=== PATIENT | female | born 2000 | race Caucasian/White ===

== ENCOUNTER 2023-03-04 10:05 | Outpatient (CLI) | payer SELFPAY | END 2023-03-04 10:06 | disposition home or self-care (01) | PROVIDERS: Visit Provider Obstetrics & Gynecology | DX: Z34.93 Encounter for supervision of normal pregnancy, unspecified, third trimester (principal); Z3A.35 35 weeks gestation of pregnancy | CPT/HCPCS: 87081; 87491; 87529; 87591; 87653 ==

== ENCOUNTER 2023-03-12 09:02 | Inpatient (IN) | payer SELFPAY ==
[2023-03-12] VITALS (32 sets, daily range): BP systolic 94–121; BP diastolic 51–77; PULSE 65–146; RESP 16–18; TEMP 36.4–37.1; O2SAT 96–100; BMI 23.5
[2023-03-12] MEDS: TERBUTALINE 1 MG/ML INJ 0.25 MG SUBCUT (09:01)
[2023-03-12] MEDS: LACTATED RINGERS 1000 ML 1,000 ML 100 ML IV ×2 (09:02→10:02)
[2023-03-12 09:04] LABS: Basophils Percent Auto 0.1 % (0.0-3.0); Eosinophils Percent Auto 0.3 % (0.0-7.0); Hematocrit 35.8 % (33.0-51.0); Hemoglobin* 12.2 gm/dL (12.0-16.0); Lymphocytes Percent Auto 14.6 % (20-44); Mean Corpuscular HGB Conc 34 gm/dL (32-36); Mean Corpuscular Hemoglobin 32 pg (26-34); Mean Corpuscular Volume 94 fL (80-100); Neutrophils Percent Auto 78.7 % (42.0-72.0); Platelet Count* 268 K/uL (140-440); RDW Coefficient of Variation % 12.8 % (11.5-15.5); Red Blood Count 3.83 m/uL (4.00-5.20); White Blood Count* 10.52 K/uL (4.50-11.00)
[2023-03-12 09:05] LABS: Basophils Absolute Auto 0.01 K/uL (0.00-0.30); Eosinophils Absolute Auto 0.03 K/uL (0.00-0.50); Immature Granulocytes Abs Auto 0.03 K/uL (0.00-0.30); Immature Granulocytes Pct Auto 0.3 %
--- NOTE | 2023-03-12 09:07 | W.ANESCHARGE ---
Anesthesia Charges Start Date/Time Anesthesia Start Date: 03/12/23 Anesthesia Start Time: 09:21 Stop Date/Time Anesthesia Stop Date: 03/12/23 Anesthesia Stop Time: 10:40 Summary Emergency: MDA
[2023-03-12 09:08] LABS: Slide Review Reflex No
--- NOTE | 2023-03-12 09:12 | PM.OBHPCS1 ---
OB - H&P: HPI History of Present Illness Chief complaint: Maternity : 3 Para: 1 Indications for induction: other (BREECH) Narrative: Aziza Damian is a 22 year old female that was being seen for an US today and was noted to be having regular contractions with fetus in breech position. She was transferred to Labor and Delivery for monitoring and found to be 5 cm. Plan to proceed with urgent section. I was asked to come and do an H&P on the patient because the surgeon was completing another procedure. Patient recently transferred to [facility] and [facility] and was seen on 03/04/[address] Bacon for transfer visit. She transferred from [facility] where she received routine care prior to transfer. Please see this for additional information. Specific Issues/Plans , BRITTNEY: 04/03/23 by first trimester US. Transfer of Care at 35 weeks OB Problem List: 1. Bicornuate Uterus, on the left horn -Malpresentation at 35 weeks, transverse head to maternal left side -Has completed growth US at different clinic all normal, pending a new growth US with clinic visit at 36 weeks if transverse will need to schedule delivery. 2. History of SAB x1 -For management of first trimester SAB, complicated by retained products, delayed hemorrhage and need for additional intervention, patient states to have been transferred to [facility], describes a hysteroscopy done, diagnosed with bicornuate uterus and received blood transfusion. 3. Transfer of care appointment, vulvar lesion concerning for genital herpes -Pending PCR results -Acyclovir ordered on 03/04/23 Transfer care labs: 1st trimester labs: Blood type O positive, antibody screen negative, hemoglobin 12.4, platelets [id number], rubella immune, RPR nonreactive, hepatitis-B surface antigen nonreactive, HIV negative, gonorrhea chlamydia negative, urine culture negative for infection. Her last Pap smear was performed on 07/10/2020 and this was found negative. Third trimester labs: 01/09/2023: Hemoglobin 11.6, 1 hour GTT: 105, RPR nonreactive. OB ultrasounds: 08/21/2022: BRITTNEY: 04/03/2023, 7 weeks 5 days, heart rate 162 beats per minute. Uterus: Abnormal shape, heart shaped with 2 horns and is Wendy the in the left horn. 11/18/2022: anatomy ultrasound: Posterior placenta, normal amount of amniotic fluid, EFW: 365 g, 47 percentile, normal anatomy. 12/18/2022: Breech presentation, single deepest pocket of amniotic fluid 4.9 cm, EFW: 50 percentile, follow-up of bilateral hands normal. 01/09/2023: Cephalic presentation, posterior placenta, normal amount of amniotic fluid, EFW 47 percentile. 02/07/2023: Transverse, head to the left, posterior placenta, single deepest pocket of amniotic fluid 6.8 cm, EFW: 31 percentile. History of Present care: good care Ultrasounds: normal 1st trimester US and normal mid trimester US Labs Blood type: O (+) positive Review of Systems Status of ROS: Reports: 6 or more systems reviewed and unremarkable except as noted in History and below [facility] Medical History Genital herpes ?A60.00 - Herpesviral infection of urogenital system, unspecified (ICD-10) Surgical History History of hysteroscopy ?Z98.890 - Other specified postprocedural states (ICD-10) H/O dilation and curettage ?Z98.890 - Other specified postprocedural states (ICD-10) Social History Little interest or pleasure in doing things: several days Feeling down, depressed, or hopeless: not at all Meds Home Medications and Allergies Allergies Allergy/AdvReac Type Severity Reaction Status Date / Time No Known Drug Allergies Allergy Verified 03/12/23 09:06 OB - H&P: Exam Physical Exam: Vital signs: Temp Pulse Resp BP Pulse Ox 98.2 F 115 H 16 121/77 98 03/12/23 09:10 03/12/23 09:00 03/12/23 09:10 03/12/23 09:00 03/12/23 08:54 Narrative: Vitals Reviewed Constitutional:? Alert and oriented x3 HEENT:? Normocephalic, atraumatic Neck:? Supple Lungs:? Clear to auscultation bilaterally Heart:? Regular rate and rhythm, no murmur, rub or gallop Abdomen:? Soft, nontender, and gravid. Vertex by Luis's, confirmed with cervical exam. Extremities:? No edema or erythema Cervix: 5 cm/BREECH NST: 145 bpm/moderate variability/15x15 accelerations/no decelerations/regular contractions every 2-4 minutes OB - Results Labs Labs: Short CBC 03/12/23 Range/Units 08:56 WBC 10.52 (4.50-11.00) K/uL Hgb 12.2 (12.0-16.0) gm/dL Hct 35.8 (33.0-51.0) % Plt Count 268 (140-440) K/uL Assessment and Plan Assessment and plan (1) Pain during labor: Status: Acute (2) Bicornuate uterus: Status: Acute (3) Breech presentation: Status: Acute Plan ASSESSMENT:? 22 at 36 6/7 weeks gestation? complicated by:?Bicornate Uterus, Genital Herpes Category 1 FHR pattern.?? Labor complicated by: BREECH presentation? GBS negative? ? PLAN:? 1. Proceed with urgent section. Care assumed by OB.
[2023-03-12] MEDS: CEFAZOLIN 2 GM INJ IVP (09:32)
--- NOTE | 2023-03-12 09:34 | W.PM.NB ---
Nerve Block Nerve Block Time Seen by Provider: 10:32 Date Seen: 03/12/23 Type of block requested by surgeon for post-operative analgesia: TAP Side: bilateral Time out performed: Yes Verification of patient name: Yes Verification of date of : Yes Site marking: site marked Name of person performing procedure: Luke Continuous monitoring Was continuous monitoring of O2 sat, B/P, property assessment monitor, recorded every 15 minutes?: Yes Procedure Checklist: sterile prep, needles and gloves Ultrasound guided. Images saved: Yes Medications given in 5ml increments after negative aspiration: Marcaine %: 0.25 mL: 30 Needle gauge: 20 and Exparel mL: 10 Patient tolerated procedure well: Yes Additional comments: Needle noted adjacent to nerve Block Charges Block Charge (with Pro Fee): TAP Bilateral Use of Ultrasound Machine for Block: Yes- US Guidance/pain block
[2023-03-12] MEDS: AZITHROMYCIN 500 MG in 0.9 % SODIUM CHLORIDE 250 ml 250 ML 255 MG IVPB (09:45)
--- NOTE | 2023-03-12 10:31 | P.OBPRC_ITS ---
Procedure Date of procedure: 03/12/23 Pre-op diagnosis: 1. Labor at 36 6/7 weeks. 2. Breech presentation. 3. Uterine anomaly Post-op diagnosis: other (Arcuate uterus) Procedure Done: Global [facility] bill your pro fee for this procedure?: Yes Blood Loss Measurement Type: QBL (378) Bakri Used: No IV fluids (mL): 1,500 Urine Output (mL): 100 Surgeon: Melissa Yates MD Associate Professor Computer Science: Leticia Gaming MD Anesthesia type: Spinal Findings: 1. Female , breech presentation, sacrum to maternal left. 7 and 9, weight 6 lb, 13 oz. 2. Uterus with slight indentation on the external fundus, and palpable muscular septum in the internal midline fundus, approximately 2.5 cm in length. Infant was to the left of this indentation. Otherwise, normal appearance to tubes and ovaries bilaterally. Procedure Description: PROCEDURE IN DETAIL: Patient was taken to the operating room with IV running. She received cefazolin and azithromycin in preoperative prophylaxis. Spinal anesthesia was administered. Rincon catheter was inserted. She was prepped and draped in the usual sterile fashion. Anesthesia was tested and found to be adequate. A low-transverse skin incision was made with a scalpel and carried through to the underlying layer of fascia with the scalpel. The subcutaneous fat was dissected off the underlying fascia bluntly, and Bovie was used on bleeding vessel along the subcutaneous tissue on the left side. The fascia was nicked in the midline with a scalpel, and this incision was extended laterally with scissors. The rectus muscles were in the midline. Peritoneum was identified and entered bluntly. Bovie was used to widen this opening laterally. Ramirez O retractor was inserted and tightened down, providing excellent visu alization of the lower uterine segment. The bladder reflection was found to be well below the planned site for hysterotomy. Low-transverse uterine incision was made with a scalpel. Incision was widened bluntly. The infant's legs were grasped through the hysterotomy, followed by the hips. Sterile towel was wrapped around the abdomen. The arms were delivered with the help of rotation of the trunk, sweeping them across the front of the body. Head was then delivered, maintaining it in a neutral position. Infant tone was initially low, and cord was thus immediately clamped cut. Infant was handed off to attending nurses. The placenta was delivered with gentle traction on the cord. The uterus was cleaned of all clots and debris with the dry lap pad. The uterus was exteriori zed and the external and internal surfaces examined as described above. The hysterotomy was reapproximated with 0 Vicryl in a running, locked fashion. Two additional [id number] sutures were required around the hysterotomy to obtain hemostasis. The adnexa were examined and noted to be normal in appearance. The cul-de-sac was cleansed with dampened laparotomy sponge, removing any further clots and debris. The uterus was returned to the abdomen. The Ramirez O retractor was removed. The hysterotomy was reexamined and found to be hemostatic. The peritoneum was reapproximated with 2 0 Vicryl in a running fashion. The rectus muscles were examined and found to be hemostatic. The fascia was reapproximated with 0 Vicryl in a running fashion. Subcutaneous fat was irrigated and Bovie u sed on oozing vessels. The subcutaneous fat was reapproximated with 2 0 plain gut suture in an interrupted fashion. The skin was closed with a subcuticular stitch of 4-0 Monocryl. Surgical glue was applied above this. Patient tolerated procedure well was taken to recovery area in stable condition. Complications: None Condition: stable Disposition: floor
[2023-03-12] MEDS: KETOROLAC 30 MG/ML inj IVP ×3 (10:35→23:20)
--- NOTE | 2023-03-12 10:45 | W.ANESCHARGE ---
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
[2023-03-12] MEDS: LACTATED RINGERS 1000 ML 1,000 ML 125 ML IV (13:28)
[2023-03-12] MEDS: VALACYCLOVIR HCL 500 MG TABLET 1000 MG PO (21:22)
[2023-03-13] VITALS (14 sets, daily range): BP systolic 92–99; BP diastolic 53–63; PULSE 66–105; RESP 16; TEMP 36.4–36.9; O2SAT 96–98
[2023-03-13] MEDS: KETOROLAC 30 MG/ML inj IVP ×3 (05:08→16:28)
[2023-03-13 06:21] LABS: Hemoglobin* 10.6 gm/dL (12.0-16.0)
[2023-03-13] MEDS: ACETAMINOPHEN 500 MG TABLET 1000 MG PO ×3 (07:46→20:12)
[2023-03-13] MEDS: DOCUSATE SODIUM 100 MG CAPSULE PO (07:47)
--- NOTE | 2023-03-13 07:47 | P.OBPN_ITS ---
Documented by User: Adam Trinidad CNM 03/13/23 07:58 OB - PN:Subj Subjective Date Seen: 03/13/23 Patient comments OB post-: pain well controlled, tolerating diet and flatus present infant status: and doing well feeding status: exclusively OB - PN: Obj Exam Physical Exam: Vital signs: Temp Pulse Resp BP Pulse Ox O2 Del Method 98.1 F 86 16 92/56 L 97 Room Air 03/13/23 04:22 03/13/23 04:22 03/13/23 06:39 03/13/23 04:22 03/13/23 04:22 03/13/23 04:22 Narrative: GENERAL APPEARANCE:? normal affect, alert, no distress MOOD:? appropriate CHEST:? clear to auscultation HEART:? regular rate and rhythm ABDOMEN:? soft, non-tender the uterine fundus is At Umbilicus, Midline and is appropriate for the stage of recovery. EXTREMITIES:? normal and no edema Incision: Healing well, no discharge, dressing intact Urinary Catheter Management: Urethral: Cath placed during this visit: yes Urethral indwelling: No Insertion date: 03/12/23 Insertion time: 09:38 OB - PN: Obj Data Labs Labs: Laboratory Results - last 24 hr 03/12/23 03/13/23 08:56 05:55 WBC 10.52 RBC 3.83 L Hgb 12.2 10.6 L Hct 35.8 MCV 94 MCH 32 MCHC 34 RDW Coeff of Kevin 12.8 Plt Count 268 Neut % (Auto) 78.7 H Lymph % (Auto) 14.6 L [place] % (Auto) 6.0 Eos % (Auto) 0.3 Baso % (Auto) 0.1 Neut # (Auto) 8.30 H Lymph # (Auto) 1.50 [place] # (Auto) 0.60 Eos # (Auto) 0.03 Baso # (Auto) 0.01 Abs Immat Gran (auto) 0.03 Imm/Tot Granulo (auto) 0.3 Blood Type O Positive Antibody Screen NEGATIVE OB - PN: A/P Delivery Assessment and Plan (1) care and examination immediately after delivery: Status: Acute (2) Bicornuate uterus: Status: Acute (3) Breech presentation: Status: Acute (4) Status post delivery: Status: Acute Plan day: 1 Plan: routine care Comments: anitcipate discharge tomorrow Documented by User: Shreya Grady CNM 03/13/23 13:03 OB - PN: Obj Exam Urinary Catheter Management: Urethral: Cath placed during this visit: yes OB - PN: A/P Delivery Assessment and Plan (1) care and examination immediately after delivery: Status: Acute (2) Bicornuate uterus: Status: Acute (3) Breech presentation: Status: Acute (4) Status post delivery: Status: Acute Plan Comments: anticipate discharge tomorrow or the next per pt preference.
[2023-03-13] MEDS: VALACYCLOVIR HCL 500 MG TABLET 1000 MG PO ×2 (08:56→21:12)
[2023-03-13] MEDS: IBUPROFEN 600 MG TABLET PO (22:45)
[2023-03-14] MEDS: ACETAMINOPHEN 500 MG TABLET 1000 MG PO ×2 (03:20→09:23)
[2023-03-14] MEDS: IBUPROFEN 600 MG TABLET PO (05:55)
[2023-03-14 07:30] VITALS: BP 104/65; PULSE 77; RESP 16; TEMP 36.9; O2SAT 97
[2023-03-14] MEDS: OXYCODONE 5 MG TABLET PO (09:22)
[2023-03-14] MEDS: VALACYCLOVIR HCL 500 MG TABLET 1000 MG PO (09:24)
--- NOTE | 2023-03-14 09:41 | PM.OBDSVD1 ---
DS: Providers Provider Date Seen: 03/14/23 Date of admission: 03/12/23 09:02 Primary care physician: Not a Local Provider Admitting Clinician: Melissa Yates MD Attending Physician on discharge: Kaylin Mckeon MD Date of Discharge: 03/14/23 DS: Diagnosis Discharge Diagnosis (1) Status post delivery: Status: Acute (2) Anemia due to blood loss, acute: Status: Acute Exam Const: Vital Signs, click to edit/add: Vital Signs - 24 hr 03/13/23 16:00 03/13/23 22:47 03/14/23 07:30 Temperature 98.3 F 97.6 F 98.5 F Pulse Rate [Pulse Oximeter] 105 H 66 77 Respiratory Rate 16 16 16 Blood Pressure [Le ft Arm] 99/58 L 95/63 104/65 Pulse Oximetry 97 97 97 Oxygen Delivery Me thod Room Air Room Air Room Air Documenting provider has reviewed patient's vital signs: yes Common normals: no apparent distress, oriented x3 and alert General appearance: cooperative and comfortable Resp: Common normals: normal respiratory effort and clear to auscultation bilaterally Auscultation: clear to auscultation bilaterally Cardio: Common normals: regular rate and regular rhythm Rate: regular rate Rhythm: regular rhythm GI: Common normals: soft to palpation and non-tender Inspection: incision (Clean, dry, intact) Inspection of incision: healing well Palpation: soft : Uterus: U/2 and firm Lochia: small Uterus palpation: uterus nontender Extremity: Common normals: normal to inspection, no calf tenderness and no pedal edema Neuro: Common normals: oriented x3 Sensorium/orientation: alert OB - DS: Summary Hospital Course Hospital Course: The patient is a 22 year old G3 now P2012 at 36 6/7 weeks gestation that was admitted to the Center on 03/12/23 in labor. Fetus was in a breech presentation. She had an uncomplicated primary low transverse delivery. Her uterus was found to be bicornuate at the time of delivery. She delivered a viable female . She is bottle feeding. the patient has done well. Peripartum Data delivery method: Primary C/S; Labored Procedures: Procedures Operation Date: 03/12/23 09:15 Actual Procedure Side Surgeon p Section Melissa Yates MD complications: none [place] Infant Gender: Female Infant Discharge Plan: Home Status at Discharge Functional status at discharge: independent ambulation Time Spent with Patient Time attestation: Total time spent providing and/or coordinating discharge services: Time spent: Less than 30 minutes Discharge Plan Discharge Disposition: Home, Self-Care Date of Admission: 03/12/23 09:02 Attending Provider on Discharge: Kyalin Mckeon Primary Care Provider: Provider,Not a Local Condition: Stable Anticipated Discharge Date/Time: 03/14/23 09:52 Discharge Medications: New docusate sodium 100 mg Capsule 100 mg PO DAILY Qty: 30 0RF ibuprofen 600 mg Tablet 600 mg PO Q6H PRN (Reason: Pain) Qty: 30 0RF oxycodone 5 mg Tablet 5 - 10 mg PO Q6H PRN (Reason: Pain) Qty: 20 0RF Continued no.167-folic acid-dha 400 mcg- 25 mg tablet,chewable 1 tab PO DAILY Changed valacyclovir 1 gram tablet 1,000 mg PO BID PRN10 Days Qty: 20 0RF Discharge Orders: Discharge Order (Routine); Ordered 03/14/23 Ordered By: Kaylin Mckeon Patient Education: OB /Bottle Feeding Activity Level: Activity as Tolerated and No strenuous activity Discharge Diet: Regular Follow Up Appointments: Provider,Not a Local [Primary Care Provider] - Forms: [employer] Info Instructions
[2023-03-14] MEDS: DOCUSATE SODIUM 100 MG CAPSULE PO (10:57)
[2023-03-15 05:21] LABS: HSV 2 Glycoprotein G IgG 3.18 IV (<=0.89)
[2023-03-16 17:24] LABS: HSV 1 and/or 2 IgM by ELISA 0.86 IV (<=0.89); HSV Type 1/2 Combined Ab, IgG >22.40 IV
== END 2023-03-14 12:45 | disposition home or self-care (01) | DRG 787 ==
LOC: OB OUT 09:03 → OB 09:03
PROVIDERS: Obstetrics & Gynecology; Admitting Provider Obstetrics & Gynecology; Referring Provider Obstetrics & Gynecology; Visit Provider Obstetrics & Gynecology
PROC: 10D00Z1 Extraction of Products of Conception, Low, Open Approach (ICD-10-PCS; CPT 59514; principal; 2023-03-12 09:00)
DX: O32.1XX0 Maternal care for breech presentation, not applicable or unspecified (principal); D62 Acute posthemorrhagic anemia; O98.32 Other infections with a predominantly sexual mode of transmission complicating childbirth; A60.00 Herpesviral infection of urogenital system, unspecified; O34.03 Maternal care for unspecified congenital malformation of uterus, third trimester; O90.81 Anemia of the puerperium; Q51.3 Bicornate uterus; G89.18 Other acute postprocedural pain; Z37.0 Single live birth; Z3A.36 36 weeks gestation of pregnancy
CPT/HCPCS: 01961; 36415; 64488; 76815; 76942; 85018; 85025; 86694; 86695; 86696; 86850; 86900; 86901; 88307; 99140; 99213; A9270; C9290; J0456; J0665; J0690; J1885; J2274; J2371; J2405; J2590; J3105; J7050; J7120

== ENCOUNTER 2023-04-01 10:21 | Outpatient (CLI) | payer SELFPAY | END 2023-04-01 10:22 | disposition home or self-care (01) | LOC: NFLDREF 10:23 | PROVIDERS: Visit Provider Registered Nurse | DX: Z39.2 Encounter for routine postpartum follow-up (principal) | CPT/HCPCS: 86787 ==

== ENCOUNTER 2023-11-12 09:40 | Outpatient (CLI) | payer MEDICAID, SELFPAY | END 2023-11-12 09:41 | disposition home or self-care (01) | LOC: FRMREF 09:41 | PROVIDERS: Visit Provider Registered Nurse | DX: N92.6 Irregular menstruation, unspecified (principal); Z30.9 Encounter for contraceptive management, unspecified | CPT/HCPCS: 84443 ==

== ENCOUNTER 2024-06-16 13:36 | Outpatient (CLI) | payer BC, SELFPAY ==
[2024-06-16 23:22] LABS: Chlamydia DNA Amplified* NOT DETECTED (No Detected); GC DNA Amplified* NOT DETECTED (No Detected)
[2024-06-27 17:01] LABS: Pap Test Reviewed by Path Done
[2024-06-29 22:18] LABS: HPV Source Cervical; HPV, High Risk by TMA Not Detected
== END 2024-06-16 13:37 | disposition home or self-care (01) ==
PROVIDERS: Visit Provider Registered Nurse
DX: R53.83 Other fatigue (principal); N91.2 Amenorrhea, unspecified; Z12.4 Encounter for screening for malignant neoplasm of cervix; Z11.3 Encounter for screening for infections with a predominantly sexual mode of transmission; Z13.6 Encounter for screening for cardiovascular disorders; Z13.1 Encounter for screening for diabetes mellitus
CPT/HCPCS: 80061; 82306; 84443; 87491; 87591; 87624; 87625; 88141; 88142